=== PATIENT | female | born 1990 | race Hispanic/Latino ===

== ENCOUNTER 2017-12-29 17:27 | Emergency (ER) | payer SELFPAY ==
[2017-12-29] MEDS ORDERED: CEFTRIAXONE SODIUM 500 MG VIAL ONE (17:51)
[2017-12-29] MEDS ORDERED: LIDOCAINE HCL-MPF 1% 2ML VIAL ONE (17:52)
[2017-12-29] MEDS ORDERED: AZITHROMYCIN 250 MG TABLET PO ONE (17:52)
[2017-12-29] MEDS ORDERED: ONDANSETRON ODT 4 MG TAB ONE (17:52)
[2017-12-29 18:12] LABS: APPEARANCE,URINE Clear (CLEAR); BILIRUBIN,URINE Negative (NEGATIVE); COLOR,URINE Yellow (YELLOW); GLUCOSE, URINE (UA) Negative (NEGATIVE); KETONES,URINE Negative (NEGATIVE); LEUKOCYTE ESTERASE ,URINE Trace (NEGATIVE); NITRATE,URINE Negative (NEGATIVE); OCCULT BLOOD,URINE Negative (NEGATIVE); PH,URINE 7.5 (5.0-8.0); PROTEIN,URINE Negative (NEGATIVE)
[2017-12-29 18:20] LABS: HCG,QUAL RESULT NEGATIVE (NEGATIVE)
[2017-12-29 18:23] LABS: BACTERIA,URINE Few /HPF (None Seen); MUCUS,URINE Rare LPF (None Seen); RBC,URINE 0-1 /HPF (0-1); SQUAMOUS EPITHELIAL CELL,UR Few /HPF (0-2)
== END 2017-12-29 18:53 | disposition home or self-care (01) ==
LOC: EDH 17:27
DX: N73.9 Female pelvic inflammatory disease, unspecified (principal)
CPT/HCPCS: 81001; 81025; 87210; 87486; 87797; 96372; 99284; J0696; J3490